=== PATIENT | female | born 2000 | race Caucasian/White ===

== ENCOUNTER 2024-01-22 19:30 | Observation (INO) | payer OTHER ==
[~2024-01-22] VITALS: Ht 162.6 cm; Wt 104.9 kg
[2024-01-22 20:08] LABS: BASOPHILS ABSOLUTE AUTO 0.03 K/mm3 (0.00-0.23); BASOPHILS PERCENT AUTO 0 % (0-2); EOSINOPHILS ABSOLUTE AUTO 0.04 K/mm3 (0.00-0.68); EOSINOPHILS PERCENT AUTO 1 % (0-6); Hematocrit 42.4 % (33.0-51.0); Hemoglobin 14.5 g/dL (11.5-16.0); IMMATURE GRAN ABSOLUTE AUTO 0.01 K/mm3 (0.00-0.10); IMMATURE GRAN PERCENT AUTO 0 % (0-1); LYMPHOCYTES ABSOLUTE AUTO 2.29 K/mm3 (0.84-5.20); LYMPHOCYTES PERCENT AUTO 34 % (21-46); MONOCYTES ABSOLUTE AUTO 0.51 K/mm3 (0.16-1.47); MONOCYTES PERCENT AUTO 8 % (4-13); Mean Corpuscular HGB 29.5 pg (26.0-34.0); Mean Corpuscular HGB Conc 34.2 g/dL (31.5-36.5); Mean Corpuscular Volume 86 fL (80-100); Mean Platelet Volume 10.8 fL (9.1-12.4); NEUTROPHILS ABSOLUTE AUTO 3.89 K/mm3 (1.96-9.15); NEUTROPHILS PERCENT AUTO 58 % (41-73); Platelet Count 292 K/mm3 (150-400); RDW Coefficient Variation 11.8 % (11.7-14.2); RDW Standard Deviation 37.3 fL (35.1-46.3); Red Blood Cell Count 4.92 M/mm3 (3.80-5.20); White Blood Cell Count 6.77 K/mm3 (4.00-11.30)
[2024-01-22 20:30] LABS: Albumin/Globulin Ratio 1.3 (0.8-1.8); Bun/Creatinine Ratio 9.2 (12.0-20.0); Calcium, Blood 8.7 mg/dL (8.5-10.1); Creatinine, Blood 0.87 mg/dL (0.40-1.00)
[2024-01-22] MEDS ORDERED: Ketorolac Tromethamine 30mg Vial IV ONE (22:35)
[2024-01-23] MEDS ORDERED: Ondansetron HCl 2 MG / ML 2ML Vial IV ONE (00:35)
[2024-01-23] MEDS ORDERED: FentaNYL Citrate 50 MCG/ML 2 ML Injection IV ONE (00:35)
[2024-01-23] MEDS ORDERED: Lactated Ringer's 1,000 ML IV ONE ×2 (00:35→08:00)
[2024-01-23] MEDS ORDERED: FentaNYL Citrate 50 MCG/ML 2 ML Injection IV PRN (00:45)
[2024-01-23] MEDS ORDERED: Lactated Ringer's 1,000 ML IV SCH (00:45)
[2024-01-23] MEDS ORDERED: Ondansetron HCl 2 MG / ML 2ML Vial IV PRN (00:45)
[2024-01-23 01:52] VITALS: BP 122/80
[2024-01-23] MEDS ORDERED: HYDROmorphone HCl/Pf 1MG SYR IV PRN (04:45)
[2024-01-23] MEDS ORDERED: Metoclopramide HCl 5MG / ML 2ML Vial IV PRN (04:45)
--- NOTE | 2024-01-23 06:04 | NUR ---
SUMMARY- PT ARRIVED TO FLOOR C/O DISCOMFORT AND NAUSEA. PT TX PER EMAR WITH LITTLE RELIEF. PT AND HER MOTHER STATE IN THE PAST THERE WAS DIFFICULTY FIND MEDS THAT WORKED EFFECTIVELY FOR PAIN AND NAUSEA. DR LO WAS CONTACTED AND DILAUDID AND REGLAN WAS ORDERED. PT REPORTED CHEST TIGHTNESS AND NO PAIN RELIEF WITH THE PRDERED DILAUDID. PT ALSO DENIES RELIEF WITH THE REGLAN. WILL REPORT TO DAYSHIFT RN. PT DID REPORT THAT CHEST TIGHTNESS RELIEVED ON OWN IN A FEW MINUTES. PT IS VOIDING. HAVING SOME GAS DISCOMFORT. PT REPORTS UNABLE TO PASS GAS. PT CURRENTLY RESTING QUIETLY. CALL LIGHT IN REACH.
[2024-01-23 07:11] VITALS: BP 103/67
[2024-01-23] MEDS ORDERED: TraMADol HCl 50 MG Tab PO PRN (07:20)
[2024-01-23] MEDS ORDERED: LORazepam 2 MG/ML 1ML Injection IV PRN (07:20)
[2024-01-23] MEDS ORDERED: Ketorolac Tromethamine 15mg Vial IV PRN (07:40)
[2024-01-23] MEDS ORDERED: Thiamine HCl 100 MG in NS 50 ML IV SCH (09:00)
[2024-01-23] MEDS ORDERED: Acetaminophen 325 MG TABLET PO SCH (12:00)
[2024-01-23 14:35] VITALS: BP 102/60
--- NOTE | 2024-01-23 14:42 | NUR ---
PT TO HIDA SCAN AT THIS TIME.
[2024-01-23] MEDS ORDERED: SINCALIDE IV ONE (15:35)
[2024-01-23] MEDS ORDERED: NS IV ONE (15:35)
--- NOTE | 2024-01-23 16:25 | NUR ---
SHIFT SUMMARY NO ACUTE CHANGES TODAY. PT STILL IN HIDA SCAN. PLAN TO LEAVE PT NPO UNTIL AFTER RESULTS COME BACK. PT REPORTS CONSTANT NAUSEA WITH NO RELIEF FROM ANY ANTIEMETICS. PT ALSO REPORTS CONSTANT ABD PAIN WITH NO RELIEF FROM ANY PAIN MEDICATIONS. IVF INFUSING PER ORDERS. FAMILY AT BEDSIDE FOR SUPPORT. VSS. INDEP IN ROOM. USES CALL LIGHT APPROPRIATELY.
[2024-01-23] MEDS ORDERED: Mag Hydrox/Al Hydrox/Simeth 18 ML,Lidocaine 2% Viscous Soln 9 ML,Atropine/Scopalam/Hyos... PO ONE (17:25)
[2024-01-23 19:55] VITALS: BP 106/69
[2024-01-24] VITALS (13 sets, daily range): BP systolic 97–130; BP diastolic 51–82
--- NOTE | 2024-01-24 05:00 | NUR ---
SHIFT SUMMARY PT ABLE TO SLEEP DURING THE SHIFT. PT C/O CONSTANT PAIN TO THE ABD WITH HARDLY ANY RELIEF FROM ANY PAIN MEDICATION. PT HAS K-PAD ON ABD, STATES GIVES SOME RELIEF. PT TOLERATING CLEARS, BECOMES NPO AT 5AM FOR SCOPE PROCEDURE THIS AM. PT VOIDING WELL. VSS NO OTHER CONCERNS AT THIS TIME, CALL LIGHT WITHIN REACH
[2024-01-24 05:32] LABS: Hematocrit 38.2 % (33.0-51.0); Hemoglobin 13.1 g/dL (11.5-16.0); Mean Corpuscular HGB 29.2 pg (26.0-34.0); Mean Corpuscular HGB Conc 34.3 g/dL (31.5-36.5); Mean Corpuscular Volume 85 fL (80-100); Mean Platelet Volume 10.8 fL (9.1-12.4); Platelet Count 255 K/mm3 (150-400); RDW Coefficient Variation 11.7 % (11.7-14.2); RDW Standard Deviation 36.3 fL (35.1-46.3); Red Blood Cell Count 4.48 M/mm3 (3.80-5.20); White Blood Cell Count 5.71 K/mm3 (4.00-11.30)
[2024-01-24 05:57] LABS: Albumin, Blood 3.5 g/dL (3.4-5.0); Albumin/Globulin Ratio 1.3 (0.8-1.8); Bilirubin, Total 1.2 mg/dL (0.1-1.0); Bun/Creatinine Ratio 10.9 (12.0-20.0); Calcium, Blood 8.4 mg/dL (8.5-10.1); Creatinine, Blood 0.82 mg/dL (0.40-1.00); Globulin, Blood 2.7 g/dL (2.2-4.0); Potassium, Blood 3.8 mmol/L (3.5-5.5); Total Protein, Blood 6.2 g/dL (6.4-8.2)
[2024-01-24] MEDS ORDERED: Lactated Ringer's 1,000 ML IV SCH (07:30)
--- NOTE | 2024-01-24 07:53 | NUR ---
PT ARRIVED TO UNIT VIA GURN. MOM AT BEDSIDE. ABLE TO TRANSFER INDEPENDENTLY. History, Chart, Medications and Allergies reviewed before start of procedure. Pre-Op teaching done. Pt verbalizes understanding. NECKLACE REMOVED AND GIVEN TO MOM IN PRE OP.
[2024-01-24] MEDS ORDERED: propofoL 20 ML IV ONE (07:56)
[2024-01-24] MEDS ORDERED: Midazolam HCl 1MG / ML 2ML Vial ONE (07:56)
--- NOTE | 2024-01-24 08:17 | NUR ---
01/24/24 0816 Scooter Darby HISTORY, CHART, MEDICATIONS AND ALLERGIES REVIEWED BEFORE START OF PROCEDURE. PATIENT CONFIRMS NPO STATUS AND AGREES WITH SCHEDULED PROCEDURE. 3-LEAD EKG REVIEWED WITH PHYSICIAN PRIOR TO START OF PROCEDURE. MONITOR INTACT WITH CONTINUOUS PULSE OXIMETRY,CAPNOGRAPHY, 3-LEAD EKG, INTERMITTENT BP. SUPPLEMENTAL O2 TO BE TITRATED THROUGHOUT PROCEDURE TO MAINTAIN O2 SATURATION ABOVE 90%. PATIENT DETERMINED TO BE ASA APPROPRIATE FOR PROPOFOL SEDATION PRIOR TO START OF PROCEDURE BY DR. LO. Bite Block Placed.
[2024-01-24] MEDS ORDERED: Pantoprazole Sodium 40 MG Injection IV SCH (09:00)
[2024-01-24] MEDS ORDERED: PROTONIX4010 PO (09:43)
[2024-01-24] MEDS ORDERED: SUCR1 PO (09:47)
--- NOTE | 2024-01-24 10:22 | NUR ---
DISCHARGE PT EDUCATED ON AND RECEIVED PRINTED DISCHARGE INSTRUCTIONS AND VERBALIZED AN UNDERSTANDING. NEW RX ELECTRONICALLY SENT TO [facility] IN [place] PER DR. LO. AURELIA DC'D. PT LEFT WITH ALL PERSONAL BELONGINGS AND MOTHER AT SIDE.
[2024-01-24] MEDS ORDERED: Sucralfate 1000MG / 10ML UD BTL PO SCH (11:30)
== END 2024-01-24 10:20 | disposition home or self-care (01) ==
LOC: ER 19:30 → SURS 19:31
PROVIDERS: Emergency Medicine; ADMIT Surgery
PROC: 0DB68ZX Excision of Stomach, Via Natural or Artificial Opening Endoscopic, Diagnostic (ICD-10-PCS; principal; 2024-01-22)
PROC: 0DB98ZX Excision of Duodenum, Via Natural or Artificial Opening Endoscopic, Diagnostic (ICD-10-PCS; principal; 2024-01-22)
DX: K25.9 Gastric ulcer, unspecified as acute or chronic, without hemorrhage or perforation (principal); K29.70 Gastritis, unspecified, without bleeding; K29.80 Duodenitis without bleeding; Z88.8 Allergy status to other drugs, medicaments and biological substances
CPT/HCPCS: 36415; 74177; 78227; 80053; 85025; 85027; 88305; 88342; 96361; 96365; 96374-59; 96375; 96376; 99285-25; A9270; A9537; C9113; G0378; J1170; J1885; J2060; J2250; J2405; J2704; J2765; J3010; J3411; J7120; Q9967